=== PATIENT | male | born 1960 | race Caucasian/White ===

== ENCOUNTER 2025-02-27 06:30 | Day surgery (SDC) | payer OTHER ==
[2025-02-24 16:11] LABS: Absolute Basophils 0.1 K/uL (0-0.5); Absolute Eosinophils 0.2 K/uL (0-0.5); Absolute Monocytes 0.7 K/uL (0.1-1.3); Absolute Neutrophil 8.6 K/uL (1.8-8.0); Basophils % 0.8 % (0-1.3); Hematocrit 46.6 % (39.6-49.0); Hemoglobin 16.2 g/dL (13.6-17.9); Lymphocytes % 17.1 % (15.3-44.8); MCH 29.3 pg (27.0-35.0); MCHC 34.7 g/dL (32.0-36.0); MCV 84.4 fL (80-100); MPV 7.3 fL (7.6-11.3); Monocytes % 6.1 % (3.3-12.3); Platelets 263 thou/uL (152-406); RBC Red Blood Cell Count 5.52 M/uL (4.33-5.43); Red Cell Distribution Width 13.6 % (12.1-15.2)
--- NOTE | 2025-02-24 16:15 | RAD REPORT ---
EXAM: Chest Pa And Lat (2 Views) HISTORY: 64 years Male Pre-op pending hernia repair, mass removal forehea COMPARISON: None. FINDINGS: LUNGS/PLEURA: The lungs are clear. No pleural effusions or pneumothorax. No pulmonary edema. CARDIAC/MEDIASTINUM: The cardiac silhouette is within normal limits. UPPER ABDOMEN: No significant abnormality. BONES: No acute abnormality. LINES/TUBES/OTHER: N/A IMPRESSION: No evidence of acute cardiopulmonary disease.
[2025-02-24 16:18] LABS: PT Prothrombin Time 11.3 SECONDS (10-13.0); PTT, Activated Partial Thromb 35.9 SECONDS (27.2-37.4); Protime INR 0.99
[2025-02-24 16:27] LABS: Anion Gap 8.8 mEq/L (5.0-15.0); Potassium 3.8 mEq/L (3.5-5.1)
[2025-02-27] MEDS ORDERED: Ringers Lactate 1,000 ML IV ONE (06:53)
[2025-02-27] MEDS ORDERED: MIDAZOLAM HCL 2 MG/2 ML INJ ONE (08:06)
[2025-02-27] MEDS ORDERED: ROCURONIUM 50 MG/5 ML VIAL IV ONE (08:06)
[2025-02-27] MEDS ORDERED: propofoL 200 MG/20 ML VIAL IV ONE ×2 (08:06→09:36)
[2025-02-27] MEDS ORDERED: FENTANYL CITR 100 MCG/2 ML ONE ×2 (08:06→08:55)
[2025-02-27] MEDS ORDERED: ONDANSETRON 4 MG/2 ML VIAL ONE (08:06)
[2025-02-27] MEDS ORDERED: LIDOCAINE 2% MPF 5 ML VIAL ONE (08:06)
[2025-02-27] MEDS ORDERED: SUGAMMADEX SODIUM 200 MG/2 ML VIAL IV ONE (08:17)
[2025-02-27] MEDS ORDERED: dexAMETHasone 10 MG/ML VIAL ONE (08:42)
[2025-02-27] MEDS: CEFAZOLIN SODIUM 1 GM/VIAL ONE (08:51)
--- NOTE | 2025-02-27 09:25 | P.BOP ---
Preoperative diagnosis: incarcerated tender umbilical hernia, tender forehead subQ mass Postoperative diagnosis: same Primary procedure: 1. Laparoscopic repair incarcerated tender umbilical hernia with mesh 5cm Secondary procedure: 2. Excisional biopsy of forehead tender subQ mass 3cm Culinary Specialist: Zenia Moyer (Jesús) Estimated blood loss: <20cc Specimen: hernia sac,,mass Findings: as above Anesthesia: General Complications: None Implants: large ventralex, sorbafix Transferred to: Recovery Room Condition: Good
[2025-02-27] MEDS: CODEINE 30MG/APAP 300MG TAB ONE (11:25)
--- NOTE | 2025-02-27 11:27 | EKG ---
Test Date: 2025-02-24 Test Time: 15:48:23 Fertilizing Machine Operator: MEASUREMENT RESULTS: Intervals: Rate: 79 MD: 152 QRSD: 102 QT: 384 QTc: 440 [place]: P: 65 MD: 152 QRS: -43 T: 38 INTERPRETIVE STATEMENTS: Normal sinus rhythm Left axis deviation Incomplete right bundle branch block Abnormal ECG No previous ECG available for comparison Electronically Signed On 02-27-25 11:21:58 CDT by Luis Hills
[2025-02-27 12:42] VITALS: BP 146/77; TEMP 97.6; O2SAT 95
--- NOTE | 2025-02-27 21:27 | DS ---
Date of Discharge: 02/27/2025 Diagnoses: Incarcerated tender umbilical hernia with tender forehead subcutaneous mass. Procedures: Laparoscopic repair of incarcerated tender umbilical hernia with mesh; and excisional bi opsy of forehead tender subcutaneous mass. Condition: Stable. Disposition: Home. Activity: As tolerated. No heavy lifting. Discharge Instructions: Follow up in my office in 1 week. Call for appointment [phone]. Keep area dry for 48 hours, then may shower, then may cover the area with sterile dressings. MANUELA/TERE Voice ID: [id number] Report ID: [id number]
--- NOTE | 2025-02-27 21:27 | OP ---
Date of Procedure: 02/27/2025 Surgeon: Flash Velasco MD Merchandise Pickup/Receiving Associate: TARYN Logan Preoperative Diagnoses: Incarcerated tender umbilical hernia, tender forehead subcutaneous mass. Postoperative Diagnoses: Incarcerated tender umbilical hernia, tender forehead subcutaneous mass. Procedures: 1. Laparoscopic repair of incarcerated tender umbilical hernia with mesh about 5 cm. 2. Excisional biopsy of forehead tender subcutaneous mass about 3 x 3 cm. Estimated Blood Loss: Less than 20 cc. Specimens: Hernia sac and forehead mass. Findings: The patient has incarcerated umbilical hernia. The omentum was reduced after fully inspec vero. The forehead mass itself looked like it is a cystic mass, was completely excised. Anesthesia: General plus local. Complications: None. Implant: Large Ventralex mesh in the periumbilical region. Indication: This is a case of a 64-year-old patient who comes with two problems and he wanted two of them resolved at the same time. Two of them are giving him pain and discomfort. The first one is a large incarcerated umbilical hernia, not able to be reduced, giving him pain and discomfort; and a l ump that is bothering him in the forehead, it is increasing in size, and discomfort, that he wanted t o see if we can have it done at the same time. I explained to him the benefits, alternatives, and ri sks of each procedure with laparoscopic, possible open repair of umbilical hernia with mesh and excis ional biopsy of forehead mass, which include, but not limited to, infection, bleeding, damage to alfa cent structures, anesthesia complication, recurrence, NC, and even . The patient also does unde rstand we may use mesh in that region. Pros and cons of mesh were discussed with the patient, and rahc jay the questions answered to his satisfaction. He signed a consent. He was also advised the importan ce of losing weight and no heavy lifting. Procedure In Detail: The patient was brought to the operating room, placed in supine position. Anes thesia was done without complication. Abdomen was prepped and draped in a sterile fashion. Local an esthesia was applied after time-out, followed by periumbilical incision. Incision was carried down u ntil we found the hernia sac. Hernia sac was opened. We noticed incarcerated omentum with some adhe sions attached to it. We released the adhesions and inspected the omentum and allowed that to reduce in the abdominal cavity since it was viable. The hernia sac was removed. The fascial edges were cl eaned. We noticed the fascial edges needed some reinforcement due to the friability of it, so we are going to use mesh in that region. I still reinforced them with Prolene #1 in a [id number] [facility] ion multiple times. We put a Brooke trocar through it, obtained pneumoperitoneum. I placed 2 more t rocars, 5 mm each one of them on the left and right sides of the abdomen under direct visualization. At that moment then we calculated the large mesh will cover the defects by 3 to 5 cm, so we put a la rge Ventralex mesh in the abdominal cavity through the umbilical trocar. The umbilical trocar was re moved. Mesh was pulled through the straps and secured in place to the anterior abdominal wall with S orbaFix, removed the straps, Prolene closed the defect, and then went and further fixated the mesh ci rcumferentially intraperitoneally to make sure there were no intestines coming in between. The mesh looked nice and flat against the peritoneum. No bleeding. The omentum looked viable, so at that mom ent I proceeded to remove the trocars under direct vision after we deflated pneumoperitoneum. Closed the subcutaneous tissue with 3-0 chromic and the skin with nolan. Sponge count and instrument cou nts were correct. The patient tolerated the procedure well. Then, we went to the forehead. The are a was prepped and draped in a sterile fashion. The area of concern was marked by me and the patient in the holding room. It looked like a friable mass in that region, about to rupture, so we made a we dge incision on the skin and slowly removed this mass. We removed that mass in 1 unit. The area was irrigated. Subcutaneous tissue was irrigated. Hemostasis obtained. Local anesthetic was applied. Then, we closed the subcutaneous tissue with 3-0 chromic and the skin with interrupted 4-0 nylon. T he patient tolerated procedure well. Sterile dressing was placed over the area. The patient was sen t to recovery in stable condition. MANUELA/TERE Voice ID: [id number] Report ID: [id number]
== END 2025-02-27 12:00 | disposition home or self-care (01) ==
LOC: OR 06:30
PROVIDERS: ATTEND Surgery
PROC: 0WUF4JZ Supplement Abdominal Wall with Synthetic Substitute, Percutaneous Endoscopic Approach (ICD-10-PCS; principal; 2025-02-27 08:30)
PROC: 0JB10ZZ Excision of Face Subcutaneous Tissue and Fascia, Open Approach (ICD-10-PCS; 2025-02-27 08:30)
DX: K42.0 Umbilical hernia with obstruction, without gangrene (principal); L72.0 Epidermal cyst
CPT/HCPCS: 93005; 85025; 80048; 36415; 85610; 88302; 88304; 85730; 71046; 49594; 11443; J2704 ×2; J2003; J2250; J3010 ×2; J1100; J2405; J7120; J0690